=== PATIENT | male | born 1965 | race Caucasian/White ===

== ENCOUNTER → 2017-01-04 | Day surgery (SDC) | payer OTHER ==
[~2017-01-04] MED LIST: ALPRAZOLAM ER1 MG PO; ALPRAZOLAM PO; LUNESTA PO; METHADONE HCL10 MG PO; METHADONE PO; SEROQUEL PO; SEROQUEL XR50 MG PO; SKELAXIN PO
--- NOTE | ~2017-01-04 | OR ---
Unit #: [id number] #: [id number] Patient: LEONA OSCAR [id number] [address] [place], [place] [address] [id number] MR#: [id number] NAME: LEONA OSCAR ROOM: Date of Procedure: 01/04/2017 Admission Date: 01/04/2017 Surgeon: Jose Alberto Morillo M.D. : 1965 Attending Physician: Jose Alberto Morillo M.D. Primary Care Physician: Jordan Campos Jr., M.D. OPERATIVE REPORT PREOPERATIVE DIAGNOSES Postlumbar fusion, degenerative disk disease with myelopathy, back pain, radiculopathy. POSTOPERATIVE DIAGNOSES Postlumbar fusion, degenerative disk disease with myelopathy, back pain, radiculopathy. PROCEDURE PERFORMED Transforaminal epidural steroid injection with fluoroscopic guidance and intravenous sedation. INDICATIONS FOR PROCEDURE The patient is a 51-year-old male, status post L5-S1 fusion. He has adjacent level disease with left neural foraminal narrowing and nerve root impingement causing left radicular pain. He was last treated for this 9 months ago with 2 transforaminal injections, which resulted in resolution of that pain until about a month ago and he has had a return of pain in the same left-sided back, hip, and lower extremity distribution. Plan is to repeat a transforaminal injection at this point at the left L4-L5 neural foramen, do a single injection observe, last time he required 2 injections. Hopefully, we will get things settle with a single injection at this point. DESCRIPTION OF PROCEDURE The patient was placed in a prone position. Standard monitors were applied. 4 mg of Versed were given for sedation and anxiolysis, which were adequate. Vital signs remained stable. Sterile prep and drape then of the lumbar area was performed. The skin then to the left of midline lateral to the L4-L5 interspace was localized with 1% lidocaine. A long 22-gauge Quincke point spinal needle was then advanced with biplanar fluoroscopic guidance to bring the needle tip to within the left L4-L5 neural foramina. The patient did not complain of any pain or paresthesia. After confirming proper positioning with fluoroscopy and radiographic contrast, 80 mg of Depo-Medrol and 1 mL of 0.25% bupivacaine were deposited. The patient tolerated the procedure otherwise well and was discharged to recovery room in stable condition. Dictated by... Jose Alberto Morillo M.D. Unit #: [id number] #: [id number] Patient: LEONA OSCAR LHP/modl TD: 01/05/2017 01:40 JOB #: [id number] OPERATIVE REPORT Page 1 of 1 X Jose Alberto Morillo MD X PROCEDURE OPERATIVE NOTE
== END | disposition home or self-care (01) ==
LOC: CCSC 08:23
DX: M51.06 Intervertebral disc disorders with myelopathy, lumbar region (principal); M51.16 Intervertebral disc disorders with radiculopathy, lumbar region; M99.73 Connective tissue and disc stenosis of intervertebral foramina of lumbar region; F41.9 Anxiety disorder, unspecified; Z79.891 Long term (current) use of opiate analgesic; Z79.899 Other long term (current) drug therapy; Z98.1 Arthrodesis status
CPT/HCPCS: J1040; J2250